=== PATIENT | male | born 1960 | race Caucasian/White ===

== ENCOUNTER 2025-08-19 11:28 | Emergency (ER) | payer OTHER ==
[2025-08-19] MEDS ORDERED: Cephalexin 500 MG CAP ONE (12:42)
== END 2025-08-19 12:45 | disposition home or self-care (01) ==
LOC: MADERS 11:28
DX: L03.115 Cellulitis of right lower limb (principal); K21.9 Gastro-esophageal reflux disease without esophagitis; E66.9 Obesity, unspecified; Z79.899 Other long term (current) drug therapy
CPT/HCPCS: 99283